=== PATIENT | male | born 1995 | race Caucasian/White ===

== ENCOUNTER 2021-03-21 15:07 | Emergency (ER) | payer OTHER ==
[2021-03-21 16:03] VITALS: TEMP 98.2
[2021-03-21] MEDS ORDERED: IPRATROPIUM-ALBUTEROL 3 ML NEB INHALATION STA (17:51)
--- NOTE | 2021-03-21 18:43 | XR ---
EXAMINATION TYPE: XR chest 2V DATE OF EXAM: 03/21/2021 COMPARISON: NONE HISTORY: Cough and congestion TECHNIQUE: 2 views FINDINGS: Heart and mediastinum are normal. Lungs are clear. Diaphragm is normal. Bony thorax is inta ct. IMPRESSION: Normal chest.
--- NOTE | 2021-03-21 18:46 | ED ---
General Adult HPI - General Chief complaint: Upper Respiratory Infection Stated complaint: Covid test Time Seen by Provider: 03/21/21 16:00 Source: patient Mode of arrival: ambulatory Limitations: no limitations - History of Present Illness Initial comments: 25-year-old male presents to the emergency department with cough, congestion and short of breath. Symptoms started today. He was exposed to covid on the and . He is not vaccinated. He has not attempted to take any medications at home for his symptoms. He denies previous history of pulmonary or cardiovascular issues. He denies any chest pain or palpitations. He has been able to hold down water however does not have an appetite for food. No vomiting. Denies diarrhea. No other alleviating, precipitating or modifying factors - Related Data Home Medications Medication Instructions Recorded Confirmed D-Methorphan/PE/Acetaminophen 1 cap PO Q4H PRN 03/21/21 03/21/21 [Vicks Dayquil Liquicaps] Previous Rx's Medication Instructions Recorded Albuterol Sulfate [Proair Hfa] 2 puff INHALATION Q6HR #8.5 gm 03/21/21 predniSONE [Deltasone] 20 mg PO BID #10 tab 03/21/21 Allergies Allergy/AdvReac Type Severity Reaction Status Date / Time No Known Allergies Allergy Verified 03/21/21 17:45 Review of Systems ROS Statement: Those systems with pertinent positive or pertinent negative responses have been documented in the HPI. ROS Other: All systems not noted in ROS Statement are negative. Past Medical History Additional Past Medical History / Comment(s): seizures History of Any Multi-Drug Resistant Organisms: None Reported Past Surgical History: No Surgical Hx Reported Past Psychological History: No Psychological Hx Reported Smoking Status: Never smoker Past Alcohol Use History: None Reported Past Drug Use History: None Reported General Exam Limitations: no limitations Course Vital Signs 03/21/21 03/21/21 03/21/21 15:58 18:19 18:53 Temperature 98.2 F Pulse Rate 119 H 107 H 114 H Respiratory 20 22 Rate Blood Pressure 111/66 128/78 O2 Sat by Pulse 97 92 L Oximetry 03/21/21 03/21/21 19:03 19:35 Temperature Pulse Rate 124 H 117 H Respiratory 18 Rate Blood Pressure 134/90 O2 Sat by Pulse 96 Oximetry EKG Findings - EKG Comments: EKG Findings:: EKG demonstrates sinus tachycardia with a ventricular rate of 103. GA interval 134. QRS 86. QTC of 416. No acute ST segment elevations or depressions concerning for ischemic changes. No signs of [id number] or Brugada Medical Decision Making - Medical Decision Making Upon arrival patient is placed into room 20. Thorough history and physical exam was performed. Patient does have an elevated heart rate and therefore EKG is obtained. I did request to attempt laboratory studies however the patient adamantly refused stating that he did not want to have an IV. I explained to him that with a high heart rate had like to give him some IV fluids however he continued to refuse. Patient is negative for Covid and influenza. Chest x-ray is clear. He is given a DuoNeb breathing treatment due to his wheezing. Patient states he feels much improved at this time. Patient remains persistently tachycardic. Request once again to obtain laboratory studies however he refused. He was given 60 mg of prednisone. Patient will be discharged home with an inhaler prescription and prednisone 20 mg twice a day for 5 days. He is instructed to follow up with his primary care doctor. As he does have exposure to Covid I did recommend that he get retested in 2 days and continue to quarantine. Patient understood this. If he has any new or worsening symptoms return to the emergency room. Patient agree to the treatment plan and was discharged home in stable condition - Lab Data Lab Results 03/21/21 03/21/21 Range/Units 16:04 18:10 Coronavirus (PCR) Not Detected (Not Detectd) Influenza Type A RNA Not Detected (Not Detectd) Influenza Type B (PCR) Not Detected (Not Detectd) Disposition Clinical Impression: Tachycardia, Cough Disposition: HOME SELF-CARE Condition: Stable Instructions (If sedation given, give patient instructions): Upper Respiratory Infection (ED) Additional Instructions: Please follow-up with your primary care doctor in 2-4 days. Return to the emergency room for any new or worsening symptoms Prescriptions: predniSONE [Deltasone] 20 mg PO BID #10 tab Albuterol Sulfate [Proair Hfa] 2 puff INHALATION Q6HR #8.5 gm Is patient prescribed a controlled substance at d/c from ED?: No Referrals: None,Stated [Primary Care Provider] - 1-2 days Time of Disposition:
[2021-03-21] MEDS ORDERED: predniSONE 20 MG TAB PO STA (19:15)
[2021-03-21 19:35] VITALS: BP 134/90; PULSE 117; RESP 18
== END 2021-03-21 19:36 | disposition home or self-care (01) ==
LOC: EC 15:07
DX: R00.0 Tachycardia, unspecified (principal); R05.9 Cough, unspecified; Z20.822 Contact with and (suspected) exposure to COVID-19
CPT/HCPCS: 99285; 94640; 93005; 87502; 87635; 71046; J7512

== ENCOUNTER 2022-08-28 10:14 | Emergency (ER) | payer OTHER ==
[2022-08-28 10:20] VITALS: TEMP 98.3
[2022-08-28 10:42] VITALS: BP 140/80; PULSE 60; RESP 16
--- NOTE | 2022-08-28 11:17 | ED ---
General Adult HPI - General Chief complaint: Recheck/Abnormal Lab/Rx Stated complaint: STD testing Time Seen by Provider: 08/28/22 10:35 Source: patient, RN notes reviewed, old records reviewed Mode of arrival: ambulatory Limitations: no limitations - History of Present Illness Initial comments: 27-year-old well-appearing male presents to the emergency room with complaints of a lesion that he seen on his penis approximately a month ago. States that it is painless and there is no drainage. Has been with his girlfriend for 7 months does not use condoms. Denies any penile discharge or dysuria. No testicular tenderness. No medical history. -: month(s) (1) Location: genitals (penis lesion) Severity scale (1-10): 0 Associated Symptoms: denies other symptoms Treatments Prior to Arrival: none - Related Data Home Medications Medication Instructions Recorded Confirmed D-Methorphan/PE/Acetaminophen 1 cap PO Q4H PRN 03/21/21 03/21/21 [Vicks Dayquil Liquicaps] Previous Rx's Medication Instructions Recorded Albuterol Sulfate [Proair Hfa] 2 puff INHALATION Q6HR #8.5 gm 03/21/21 predniSONE [Deltasone] 20 mg PO BID #10 tab 03/21/21 Allergies Allergy/AdvReac Type Severity Reaction Status Date / Time No Known Allergies Allergy Verified 08/28/22 10:20 Review of Systems ROS Statement: Those systems with pertinent positive or pertinent negative responses have been documented in the HPI. ROS Other: All systems not noted in ROS Statement are negative. Past Medical History Past Medical History: Seizure Disorder Additional Past Medical History / Comment(s): seizures History of Any Multi-Drug Resistant Organisms: None Reported Past Surgical History: No Surgical Hx Reported Past Psychological History: No Psychological Hx Reported Smoking Status: Never smoker Past Alcohol Use History: None Reported Past Drug Use History: None Reported General Exam Limitations: no limitations General appearance: alert, in no apparent distress Head exam: Present: atraumatic Eye exam: Present: normal appearance. Absent: scleral icterus, conjunctival injection, periorbital swelling ENT exam: Present: normal oropharynx, mucous membranes moist Neck exam: Present: full ROM. Absent: tenderness, meningismus Respiratory exam: Present: normal lung sounds bilaterally. Absent: respiratory distress, accessory muscle use Cardiovascular Exam: Present: regular rate GI/Abdominal exam: Present: soft. Absent: distended, tenderness, guarding, rebound, rigid exam: Present: normal inspection, vertical testicular lie, circumcision, other (hair follicle vs cyst <2mm dorsal base of penis, non-erythematous, nontender, no fluctuance). Absent: testicular tenderness, urethral discharge, scrotal swelling External exam: Present: normal external exam Extremities exam: Present: normal capillary refill. Absent: pedal edema Back exam: Present: normal inspection, full ROM. Absent: tenderness, CVA tenderness (R), CVA tenderness (L), rash noted Neurological exam: Present: alert, oriented X3, normal gait Psychiatric exam: Present: normal affect, normal mood Skin exam: Present: warm, dry, normal color. Absent: cyanosis, diaphoretic, petechiae, pallor Course Vital Signs 08/28/22 08/28/22 10:18 10:20 Temperature 98.3 F Pulse Rate 90 60 Respiratory 18 16 Rate Blood Pressure 145/89 140/80 O2 Sat by Pulse 98 98 Oximetry Medical Decision Making - Medical Decision Making Was pt. sent in by a medical professional or institution (Dr. PA, CORRECTIONAL NURSE, urgent care, hospital, or custodial...) When possible be specific @ -No Did you speak to anyone other than the patient for history (EMS, parent, family, police, friend...)? What history was obtained from this source @ -No Did you review nursing and triage notes (agree or disagree)? Why? @ -I reviewed and agree with nursing and triage notes Were old charts reviewed (outside hosp., previous admission, EMS record, old EKG, old radiological studies, urgent care reports/EKG's, custodial records)? Report findings @ -No old charts were reviewed Differential Diagnosis (chest pain, altered mental status, abdominal pain women, abdominal pain men, vaginal bleeding, weakness, fever, dyspnea, syncope, headache, dizziness, GI bleed, back pain, seizure, CVA, palpatations, mental health, musculoskeletal)? @ -Herpes, abscess, folliculitis, chancre EKG interpreted by me (3pts min.). @ -n/a X-rays interpreted by me (1pt min.). @ -None done CT interpreted by me (1pt min.). @ -None done U/S interpreted by me (1pt. min.). @ -None done What testing was considered but not performed or refused? (CT, X-rays, U/S, labs)? Why? @ -None What meds were considered but not given or refused? Why? @ -None Did you discuss the management of the patient with other professionals (professionals i.e. , PA, CORRECTIONAL NURSE, lab, RT, psych nurse, social scientist, college or university registrar, teacher, staff nuclear weapons officer, nurse case management)? Give summary @ -No Was smoking cessation discussed for >3mins.? @ -No Was critical care preformed (if so, how long)? @ -No Were there social determinants of health that impacted care today? How? (Homelessness, low income, unemployed, alcoholism, drug addiction, transportation, low edu. Level, literacy, decrease access to med. care, [facility], rehab)? @ -No Was there de-escalation of care discussed even if they declined (Discuss DNR or withdrawal of care, Hospice)? DNR status @ -No What co-morbidities impacted this encounter? (DM, HTN, Smoking, COPD, CAD, Cancer, CVA, ARF, Chemo, Hep., AIDS, mental health diagnosis, sleep apnea, morbid obesity)? @ -Seizure Was patient admitted / discharged? Hospital course, mention meds given and route, prescriptions, significant lab abnormalities, going to OR and other per tinent info. @ -Discharged 27-year-old well-appearing male presents with complaints of a lesion at the base of his penis for a month. States that it is painless and there is no drainage. Has been with his girlfriend for 7 months does not use condoms. Denies any penile discharge or dysuria. No testicular tenderness. On physical exam there is a 2 mm hair follicle but no evidence of lesion. No erythema or drainage. No open sores. Patient denies any pain. This appears to be a hair follicle. No testicular tenderness or penile discharge. Patient was instructed to use warm moist compresses follow-up with his primary care doctor as needed. Return with any new or concerning symptoms. Patient is agreeable to this plan of care. Case discussed with Dr. Domingo. Undiagnosed new problem with uncertain prognosis? @ -No Drug Therapy requiring intensive monitoring for toxicity (Heparin, Nitro, Insulin, Cardizem)? @ -No Were any procedures done? @ -No Diagnosis/symptom? @ -Folliculitis Acute, or Chronic, or Acute on Chronic? @ -Acute Uncomplicated (without systemic symptoms) or Complicated (systemic symptoms)? @ -Uncomplicated Side effects of treatment? @ -No Exacerbation, Progression, or Severe Exacerbation? @ -No Poses a threat to life or bodily function? How? (Chest pain, [place], [place], pneumonia, PE, COPD, DKA, ARF, appy, cholecystitis, CVA, Diverticulitis, Homicidal, Suicidal, threat to staff... and all critical care pts) @ -No Disposition Clinical Impression: Folliculitis Disposition: HOME SELF-CARE Condition: Good Instructions (If sedation given, give patient instructions): Folliculitis (ED) Additional Instructions: Use warm moist compresses on the area. Return to the emergency room with any new or concerning symptoms including increased swelling pain or fevers. Follow- up with your doctor as needed. Is patient prescribed a controlled substance at d/c from ED?: No Referrals: None,Stated [Primary Care Provider] - 1-2 days Time of Disposition: 11:25
== END 2022-08-28 11:35 | disposition home or self-care (01) ==
LOC: EC 10:14
DX: L73.9 Follicular disorder, unspecified (principal)
CPT/HCPCS: 99283

== ENCOUNTER 2024-02-18 16:49 | Emergency (ER) | payer SELFPAY ==
--- NOTE | 2024-02-18 17:51 | ED ---
General Adult HPI - General Chief complaint: Recheck/Abnormal Lab/Rx Stated complaint: std Time Seen by Provider: 02/18/24 17:22 Source: patient, RN notes reviewed, old records reviewed Mode of arrival: ambulatory Limitations: no limitations - History of Present Illness Initial comments: 28-year-old male with concern for STD. Patient denies dysuria or hematuria. Denies urgency or frequency. He has noticed some bumps on the shaft of his penis after shaving. He is also had an abnormal growth at the base of his penis for approximately 1 year. - Related Data Home Medications Medication Instructions Recorded Confirmed D-Methorphan/PE/Acetaminophen 1 cap PO Q4H PRN 03/21/21 03/21/21 [Vicks Dayquil Liquicaps] Previous Rx's Medication Instructions Recorded Albuterol Sulfate [Proair Hfa] 2 puff INHALATION Q6HR #8.5 gm 03/21/21 predniSONE [Deltasone] 20 mg PO BID #10 tab 03/21/21 Allergies Allergy/AdvReac Type Severity Reaction Status Date / Time No Known Allergies Allergy Verified 02/18/24 17:20 Review of Systems ROS Statement: Those systems with pertinent positive or pertinent negative responses have been documented in the HPI. ROS Other: All systems not noted in ROS Statement are negative. Past Medical History Past Medical History: Seizure Disorder Additional Past Medical History / Comment(s): seizures History of Any Multi-Drug Resistant Organisms: None Reported Past Surgical History: No Surgical Hx Reported Past Psychological History: No Psychological Hx Reported Smoking Status: Never smoker Past Alcohol Use History: None Reported Past Drug Use History: None Reported General Exam Limitations: no limitations General appearance: alert, in no apparent distress Head exam: Present: atraumatic, normocephalic Eye exam: Present: normal appearance, PERRL ENT exam: Present: normal exam Neck exam: Present: normal inspection. Absent: tenderness Respiratory exam: Present: normal lung sounds bilaterally. Absent: respiratory distress, wheezes Cardiovascular Exam: Present: regular rate, normal rhythm exam: Present: circumcision, other (Mild folliculitis on the shaft of the penis and a growth at the base of the penis wart vs mole). Absent: urethral discharge Neurological exam: Present: alert, oriented X3, CN II-XII intact, normal gait. Absent: motor sensory deficit Psychiatric exam: Present: normal affect, normal mood Skin exam: Present: warm, dry, intact Course Vital Signs 02/18/24 17:17 Temperature 98.2 F Pulse Rate 77 Respiratory 20 Rate Blood Pressure 140/57 O2 Sat by Pulse 99 Oximetry Medical Decision Making - Medical Decision Making Was pt. sent in by a medical professional or institution (OSWALDO Colvin, FORESTRY FOREMAN, urgent care, hospital, or assisted...) When possible be specific @ -No Did you speak to anyone other than the patient for history (EMS, parent, family, police, friend...)? What history was obtained from this source @ -No Did you review nursing and triage notes (agree or disagree)? Why? @ -I reviewed and agree with nursing and triage notes Were old charts reviewed (outside hosp., previous admission, EMS record, old EKG, old radiological studies, urgent care reports/EKG's, assisted records)? Report findings @ -No old charts were reviewed Differential Diagnosis: GC chlamydia, HPV, folliculitis, herpes virus EKG interpreted by me (3pts min.). @ -As above X-rays interpreted by me (1pt min.). @ -None done CT interpreted by me (1pt min.). @ -None done U/S interpreted by me (1pt. min.). @ -None done What testing was considered but not performed or refused? (CT, X-rays, U/S, labs)? Why? @ -None What meds were considered but not given or refused? Why? @ -None Did you discuss the management of the patient with other professionals (professionals i.e. OSWALDO Colvin, FORESTRY FOREMAN, lab, RT, psych nurse, leather production worker, airline dispatcher, teacher, financial compliance officer, pillowcase cutter)? Give summary @ -No Was smoking cessation discussed for >3mins.? @ -No Was critical care preformed (if so, how long)? @ -No Were there social determinants of health that impacted care today? How? (Homelessness, low income, unemployed, alcoholism, drug addiction, transportation, low edu. Level, literacy, decrease access to med. care, residential, rehab)? @ -No Was there de-escalation of care discussed even if they declined (Discuss DNR or withdrawal of care, Hospice)? DNR status @ -No What co-morbidities impacted this encounter? (DM, HTN, Smoking, COPD, CAD, Cancer, CVA, ARF, Chemo, Hep., AIDS, mental health diagnosis, sleep apnea, morbid obesity)? @ -None Was patient admitted / discharged? Hospital course, mention meds given and route, prescriptions, significant lab abnormalities, going to OR and other pertinent info. @28-year-old male with concern for STD. Patient has a very mild folliculitis on the shaft of the penis which is likely from shaving. He is instructed to abstain from shaving this area and cleanse with warm soapy water. He also has either a mole or a wart at the base of the penis which has been there for at least 1 year. Patient is informed that we do not do extensive STD testing in the emergency department but is offered testing for gonorrhea and chlamydia. He does not want empiric treatment at this time he will await for the results of this testing. He is given follow-up with primary care for further STD testing and is encouraged to go to the health department as needed. He may require dermatology evaluation with concern for wart or mole. Undiagnosed new problem with uncertain prognosis? @ -No Drug Therapy requiring intensive monitoring for toxicity (Heparin, Nitro, Insulin, Cardizem)? @ -No Were any procedures done? @ -No Diagnosis/symptom? @ -[Concern for STD, Acute, or Chronic, or Acute on Chronic? @Acute Uncomplicated (without systemic symptoms) or Complicated (systemic symptoms)? @ -Default Side effects of treatment? @ -No Exacerbation, Progression, or Severe Exacerbation? @ -No Poses a threat to life or bodily function? How? (Chest pain, [place], [place], pneumonia, PE, COPD, DKA, ARF, appy, cholecystitis, CVA, Diverticulitis, Homicidal, Suicidal, threat to staff... and all critical care pts) @ -No Disposition Clinical Impression: Concern about STD in male without diagnosis Disposition: HOME SELF-CARE Condition: Fair Instructions (If sedation given, give patient instructions): Sexually Transmitted Diseases (ED) Additional Instructions: Please follow-up with primary care provider or the health department for further STD testing. Is patient prescribed a controlled substance at d/c from ED?: No Referrals: Janet Velasquez MD [STAFF PHYSICIAN] - 1-2 days None,Stated [Primary Care Provider] - 1-2 days [facility] - 1-2 days Sherine Hernandez MD [STAFF PHYSICIAN] - 1-2 days Time of Disposition: 17:50
[2024-02-18 18:30] VITALS: BP 135/76; PULSE 79; RESP 18; TEMP 98.1
== END 2024-02-18 18:30 | disposition home or self-care (01) ==
LOC: EC 16:49
DX: Z20.2 Contact with and (suspected) exposure to infections with a predominantly sexual mode of transmission (principal)
CPT/HCPCS: 87491; 87591; 99283